=== PATIENT | male | born 1980 | race Caucasian/White ===

== ENCOUNTER 2024-08-07 11:11 | Emergency (ER) | payer MEDICAID ==
[~2024-08-07] VITALS: Ht 170.2 cm; Wt 93.5 kg
[~2024-08-07 11:11] MED LIST: NO HOME MEDS
[2024-08-07 11:41] VITALS: TEMP 97.8
[2024-08-07 12:13] LABS: BASOPHILS % (AUTO) 0.5 % (0-1); EOSINOPHILS # (AUTO) 0.4 X10'3 (0-0.9); EOSINOPHILS % (AUTO) 4.8 % (0-6); HEMATOCRIT 53.8 % (42.0-52.0); LYMPHOCYTES # (AUTO) 2.9 X10'3 (1.1-4.8); LYMPHOCYTES % (AUTO) 33.9 % (21-51); MEAN CORPUSCULAR HEMOGLOBIN 31.4 PG (27.0-31.0); MEAN CORPUSCULAR HGB CONC 34.2 g/dL (33.0-36.5); MEAN CORPUSCULAR VOLUME 91.7 FL (78-98); MEAN PLATELET VOLUME 8.4 FL (7.4-10.4); MONOCYTES # (AUTO) 0.6 X10'3 (0-0.9); MONOCYTES % (AUTO) 7.2 % (2-12); NEUTROPHILS # (AUTO) 4.6 X10'3 (1.8-7.7); NEUTROPHILS % (AUTO) 53.6 % (42-75); PLATELET COUNT 201 X10'3 (140-440); RED BLOOD COUNT 5.87 X10'6 (4.70-6.10); RED CELL DISTRIBUTION WIDTH 13.3 % (11.5-14.5); WHITE BLOOD COUNT 8.6 X10'3 (4.5-11.0)
[2024-08-07 12:19] LABS: HEMOGLOBIN 18.4 g/dl (14.0-17.9)
[2024-08-07 12:24] LABS: ALANINE AMINOTRANSFERASE 36 U/L (12-78); ALBUMIN 3.9 G/DL (3.4-5.0); ALKALINE PHOSPHATASE 72 IU/L (46-116); ANION GAP 7 (8-16); ASPARTATE AMINO TRANSFERASE 16 U/L (10-37); BILIRUBIN,TOTAL 0.7 MG/DL (0.1-1.0); BLOOD UREA NITROGEN 13 MG/DL (7-18); BUN/CREATININE RATIO 13.7 (10.0-20.0); CALCIUM 9.1 MG/DL (8.5-10.1); CHLORIDE 103 MMOL/L (99-107); CREATININE 0.95 MG/DL (0.60-1.10); GLUCOSE 82 MG/DL (70-104); LIPASE 37 U/L (16-77); POTASSIUM 4.1 MMOL/L (3.5-5.1); SODIUM 137 MMOL/L (135-145); TOTAL CARBON DIOXIDE 26.7 MMOL/L (24-32); TOTAL PROTEIN 7.7 G/DL (6.4-8.2); eCRCL 95 ML/MIN; eGFR 87 ML/MIN
[2024-08-07 12:48] LABS: BILIRUBIN,URINE NEGATIVE (Neg); CLARITY,URINE SLIGHTLY CLOUDY (Clear); COLOR,URINE YELLOW (Yellow); GLUCOSE, URINE NEGATIVE (Neg); KETONES,URINE NEGATIVE (Neg); LEUKOCYTE ESTERASE ,URINE SMALL (Neg); NITRITES, URINE NEGATIVE (Neg); OCCULT BLOOD,URINE MODERATE (Neg); PROTEIN,URINE TRACE mg/dl (Neg); UROBILINOGEN,URINE 0.2 E.U/dL (0.2-1.0)
[2024-08-07 12:56] LABS: UA COLLECTION TYPE CLN CATCH MIDSTREAM
[2024-08-07 12:57] LABS: SQUAMOUS EPITHELIAL CELL,UR FEW /LPF (FEW)
[2024-08-07 12:58] LABS: BACTERIA,URINE 1+ /HPF (Neg)
[2024-08-07 14:10] VITALS: BP 139/74; PULSE 69; O2SAT 98
[2024-08-07] MEDS ORDERED: HYDR-3965 PO (14:26)
[2024-08-07] MEDS ORDERED: FLO0.4C PO (14:26)
[2024-08-07] MEDS ORDERED: ONDA-245 PO (14:26)
[2024-08-07] MEDS ORDERED: PHEN-716 PO (14:26)
[2024-08-07] MEDS ORDERED: CEPH-585 PO (14:26)
[2024-08-07 14:42] VITALS: RESP 16
[2024-08-07] MEDS: HYDROcodone/acetaminophen 10/325mg tab PO ONE (14:42)
[2024-08-07] MEDS: phenazopyridine 100mg tablet PO ONE (14:42)
[2024-08-07] MEDS: ondansetron 4mg rapidly disintigrating tab PO ONE (14:42)
== END 2024-08-07 14:53 | disposition home or self-care (01) ==
LOC: ER 11:11
DX: N20.1 Calculus of ureter (principal); F17.200 Nicotine dependence, unspecified, uncomplicated; Z87.442 Personal history of urinary calculi
CPT/HCPCS: 36415; 74176; 80053; 81001; 83690; 85025; 87088; 99284

== ENCOUNTER 2024-08-31 16:17 | Inpatient (IN) | payer MEDICAID ==
[~2024-08-31] VITALS: Ht 170.2 cm; Wt 91.8 kg
[~2024-08-31 16:17] MED LIST changes: +FLO0.4C PO; +HYDR-3965 PO; +ONDA-245 PO; +PHEN-716 PO
[2024-08-31 17:02] LABS: BILIRUBIN,URINE NEGATIVE (Neg); CLARITY,URINE CLEAR (Clear); COLOR,URINE YELLOW (Yellow); GLUCOSE, URINE NEGATIVE (Neg); KETONES,URINE NEGATIVE (Neg); LEUKOCYTE ESTERASE ,URINE SMALL (Neg); NITRITES, URINE NEGATIVE (Neg); OCCULT BLOOD,URINE LARGE (Neg); PROTEIN,URINE 100 mg/dl (Neg); UROBILINOGEN,URINE 0.2 E.U/dL (0.2-1.0)
[2024-08-31 17:09] LABS: UA COLLECTION TYPE CLN CATCH MIDSTREAM
[2024-08-31 17:10] LABS: WBC,URINE TNTC /HPF (0-4)
[2024-08-31 17:11] LABS: BACTERIA,URINE 3+ /HPF (Neg); RBC,URINE TNTC /HPF (0-2); SQUAMOUS EPITHELIAL CELL,UR FEW /LPF (FEW)
[2024-08-31 17:26] LABS: BASOPHILS # (AUTO) 0.1 X10'3 (0-0.2); BASOPHILS % (AUTO) 0.4 % (0-1); EOSINOPHILS # (AUTO) 0.2 X10'3 (0-0.9); EOSINOPHILS % (AUTO) 1.4 % (0-6); HEMATOCRIT 50.9 % (42.0-52.0); HEMOGLOBIN 17.5 g/dl (14.0-17.9); LYMPHOCYTES % (AUTO) 17.3 % (21-51); MEAN CORPUSCULAR HEMOGLOBIN 31.1 PG (27.0-31.0); MEAN CORPUSCULAR HGB CONC 34.4 g/dL (33.0-36.5); MEAN CORPUSCULAR VOLUME 90.4 FL (78-98); MEAN PLATELET VOLUME 8.7 FL (7.4-10.4); MONOCYTES # (AUTO) 0.6 X10'3 (0-0.9); MONOCYTES % (AUTO) 5.4 % (2-12); NEUTROPHILS # (AUTO) 8.6 X10'3 (1.8-7.7); NEUTROPHILS % (AUTO) 75.5 % (42-75); PLATELET COUNT 209 X10'3 (140-440); RED BLOOD COUNT 5.63 X10'6 (4.70-6.10); RED CELL DISTRIBUTION WIDTH 13.5 % (11.5-14.5); WHITE BLOOD COUNT 11.3 X10'3 (4.5-11.0)
[2024-08-31 17:33] LABS: APTT 29 SECONDS (22-32); INR 0.9 INR; PROTHROMBIN TIME 9.9 SECONDS (9.0-12.0)
[2024-08-31 17:34] LABS: ALANINE AMINOTRANSFERASE 39 U/L (12-78); ALBUMIN 4.1 G/DL (3.4-5.0); ALBUMIN/GLOBULIN RATIO 1.2 (1.1-1.5); ALKALINE PHOSPHATASE 82 IU/L (46-116); ANION GAP 12 (8-16); ASPARTATE AMINO TRANSFERASE 16 U/L (10-37); BLOOD UREA NITROGEN 14 MG/DL (7-18); CHLORIDE 102 MMOL/L (99-107); GLUCOSE 90 MG/DL (70-104); LIPASE 34 U/L (16-77); POTASSIUM 3.8 MMOL/L (3.5-5.1); SODIUM 138 MMOL/L (135-145); TOTAL CARBON DIOXIDE 24.4 MMOL/L (24-32); TOTAL PROTEIN 7.5 G/DL (6.4-8.2); eCRCL 90 ML/MIN; eGFR 82 ML/MIN
[2024-08-31] MEDS: CefTRIAXone 2gm/D5W 50ml BAG 50 ML IV ONE ×2 (19:40→21:39)
[2024-08-31] MEDS ORDERED: CefTRIAXone 2gm/D5W 50ml BAG 50 ML IV ONE (19:50)
[2024-08-31] MEDS: ondansetron/PF 4mg/2ml inj IV ONE (20:04)
[2024-08-31] MEDS: HYDROmorphone 1 mg/ml syringe IV ONE (20:05)
[2024-08-31] MEDS: normal saline 1000ml 1,000 ML IV ONE ×2 (20:10→22:24)
[2024-08-31] MEDS ORDERED: potassium Cl 20 mEq SR tablet PO PRN ×2 (21:30)
[2024-08-31] MEDS ORDERED: ondansetron/PF 4mg/2ml inj IV PRN (21:30)
[2024-08-31] MEDS ORDERED: potassium Cl 40MEQ/1/2NS 520ml 520 ML IV PRN (21:30)
[2024-08-31] MEDS ORDERED: mag hydrox/Alum hydrox/simeth 30ml oral suspension PO PRN (21:30)
[2024-08-31] MEDS ORDERED: acetaminophen 325mg tablet PO PRN (21:30)
[2024-08-31] MEDS ORDERED: magnesium hydroxide 30ml (MOM) UD suspension PO PRN (21:30)
[2024-08-31] MEDS ORDERED: magnesium Cl slow-release 64mg tablet PO PRN (21:30)
[2024-08-31] MEDS: normal saline 1000ml 1,000 ML IV SCH (21:30)
[2024-08-31] MEDS ORDERED: magnesium sulf-water 2g/50mL 50 ML IV PRN (21:30)
[2024-08-31] MEDS ORDERED: magnesium sulf-water 4G/100mL 100 ML IV PRN (21:30)
[2024-08-31] MEDS ORDERED: ketorolac trometh 30MG/ML vial 30 MG/ML VIAL IM PRN (22:05)
[2024-08-31 23:45] VITALS: BP 123/86; PULSE 73; RESP 18; TEMP 97.9; O2SAT 100
[2024-09-01] VITALS (10 sets, daily range): BP systolic 103–128; BP diastolic 65–82; PULSE 59–81; RESP 11–21; TEMP 98; O2SAT 95–100
[2024-09-01] MEDS: tamsulosin 0.4mg capsule PO SCH (00:29)
[2024-09-01] MEDS: acetaminophen 325mg tablet PO PRN (00:29)
[2024-09-01] MEDS: K and/or MAG REPLACEMENT MC SCH (07:16)
[2024-09-01 07:56] LABS: BASOPHILS % (AUTO) 0.3 % (0-1); EOSINOPHILS # (AUTO) 0.2 X10'3 (0-0.9); EOSINOPHILS % (AUTO) 3.1 % (0-6); HEMATOCRIT 48.1 % (42.0-52.0); HEMOGLOBIN 16.5 g/dl (14.0-17.9); LYMPHOCYTES # (AUTO) 1.9 X10'3 (1.1-4.8); LYMPHOCYTES % (AUTO) 24.9 % (21-51); MEAN CORPUSCULAR HEMOGLOBIN 31.3 PG (27.0-31.0); MEAN CORPUSCULAR HGB CONC 34.3 g/dL (33.0-36.5); MEAN CORPUSCULAR VOLUME 91.2 FL (78-98); MEAN PLATELET VOLUME 8.8 FL (7.4-10.4); MONOCYTES # (AUTO) 0.5 X10'3 (0-0.9); MONOCYTES % (AUTO) 6.9 % (2-12); NEUTROPHILS % (AUTO) 64.8 % (42-75); PLATELET COUNT 179 X10'3 (140-440); RED BLOOD COUNT 5.27 X10'6 (4.70-6.10); RED CELL DISTRIBUTION WIDTH 13.4 % (11.5-14.5); WHITE BLOOD COUNT 7.7 X10'3 (4.5-11.0)
[2024-09-01] MEDS: docusate sod 100mg capsule PO SCH (08:00)
[2024-09-01 08:11] LABS: APTT 30 SECONDS (22-32); INR 0.9 INR; PROTHROMBIN TIME 9.8 SECONDS (9.0-12.0)
[2024-09-01 08:21] LABS: ALANINE AMINOTRANSFERASE 33 U/L (12-78); ALBUMIN 3.4 G/DL (3.4-5.0); ALBUMIN/GLOBULIN RATIO 1.1 (1.1-1.5); ALKALINE PHOSPHATASE 69 IU/L (46-116); ANION GAP 9 (8-16); ASPARTATE AMINO TRANSFERASE 15 U/L (10-37); BILIRUBIN,TOTAL 0.6 MG/DL (0.1-1.0); BLOOD UREA NITROGEN 17 MG/DL (7-18); BUN/CREATININE RATIO 19.3 (10.0-20.0); CALCIUM 8.4 MG/DL (8.5-10.1); CHLORIDE 108 MMOL/L (99-107); CREATININE 0.88 MG/DL (0.60-1.10); GLUCOSE 104 MG/DL (70-104); MAGNESIUM 2.1 MG/DL (1.5-2.4); PHOSPHORUS 3.6 MG/DL (2.3-4.5); POTASSIUM 4.1 MMOL/L (3.5-5.1); SODIUM 143 MMOL/L (135-145); TOTAL CARBON DIOXIDE 26.1 MMOL/L (24-32); TOTAL PROTEIN 6.5 G/DL (6.4-8.2); eCRCL 102 ML/MIN; eGFR > 90 ML/MIN
[2024-09-01] MEDS ORDERED: morphine 2 MG/ML inj. syringe IV PRN (09:20)
[2024-09-01] MEDS ORDERED: ringers solution, lacted 1,000 ML IV SCH (09:20)
[2024-09-01] MEDS ORDERED: labetalol 20mg/4ml (5mg/ml) syringe IV PRN (09:20)
[2024-09-01] MEDS ORDERED: fentaNYL/PF 50MCG/1 ML 2ML syringe IV PRN ×2 (09:20)
[2024-09-01] MEDS ORDERED: hydrALAZINE 20mg/ml inj. IV PRN (09:20)
[2024-09-01] MEDS ORDERED: ondansetron/PF 4mg/2ml inj IV PRN (09:20)
[2024-09-01] MEDS ORDERED: morphine 4 MG/ML inj SYRINge IV PRN (09:20)
[2024-09-01] MEDS ORDERED: iohexol 300 MG/1 ML 50ml polymer ONE (11:11)
[2024-09-01] MEDS ORDERED: morphine /PF 1mg/ml 10ml inj. ONE (11:16)
[2024-09-01] MEDS ORDERED: propofol inj 20 ML IV ONE (11:30)
[2024-09-01] MEDS ORDERED: LIDOcaine 2% (20mg/ml) 5ml vial ONE (11:30)
[2024-09-01] MEDS ORDERED: propofol inj 0 ML IV ONE (11:30)
[2024-09-01] MEDS ORDERED: dexamethasone sod phosphate 4mg/ml inj. ONE (11:31)
[2024-09-01] MEDS ORDERED: ondansetron/PF 4mg/2ml inj ONE (11:31)
[2024-09-01] MEDS ORDERED: ceFAZolin 1000mg inj ONE ×2 (11:34)
[2024-09-01] MEDS: iohexol 300 MG/1 ML 50ml polymer IV ONE (11:47)
[2024-09-01] MEDS ORDERED: CIPR-259 PO (14:40)
[2024-09-01] MEDS ORDERED: enoxaparin 40mg/0.4ml syringe SQ SCH (20:00)
[2024-09-01] MEDS ORDERED: CefTRIAXone 2gm/D5W 50ml BAG 50 ML IV SCH (21:00)
== END 2024-09-01 15:15 | disposition home or self-care (01) | DRG 463 ==
LOC: ER 16:17 → ED HOLD 21:33 → EDBEDREQ 22:30 → ORTHO 4S 22:58
PROVIDERS: ADMIT Surgery Surgical Critical Care; ATTEND Internal Medicine
PROC: 0T778DZ Dilation of Left Ureter with Intraluminal Device, Via Natural or Artificial Opening Endoscopic (ICD-10-PCS; 2024-09-01)
PROC: BT1F1ZZ Fluoroscopy of Left Kidney, Ureter and Bladder using Low Osmolar Contrast (ICD-10-PCS; principal; 2024-09-01 11:16)
DX: N13.6 Pyonephrosis (principal); Q60.0 Renal agenesis, unilateral; F17.210 Nicotine dependence, cigarettes, uncomplicated; Z79.899 Other long term (current) drug therapy
CPT/HCPCS: 36415; 74176; 74420; 76000; 76770; 80053; 81001; 82948; 83690; 83735; 84100; 85025; 85610; 85730; 87040; 87077; 87081; 87088; 87186; 96361; 96365; 96375; 99285; A4618; C1769; C2617; G0378; J0690; J0696; J1100; J1171; J2003; J2274; J2405; J2704; J7030; J7040; J7120; Q9967